=== PATIENT | female | born 1980 | race Two or more races ===

== ENCOUNTER 2018-08-20 10:50 | Emergency (ER) | payer SELFPAY ==
[~2018-08-20] VITALS: Ht 162.6 cm; Wt 108.9 kg
--- NOTE | 2018-08-20 11:20 | NUR ---
Dr Jenkins at the bedside for MSE.
[2018-08-20] MEDS ORDERED: IV NORMAL SALINE 1000 ML BAG IV ONE (11:30)
[2018-08-20] MEDS ORDERED: MORPHINE SULFATE 2 MG/1 ML DISP.SYRIN IV ONE (11:30)
[2018-08-20] MEDS ORDERED: ONDANSETRON 4 MG/2 ML VIAL IV ONE (11:30)
[2018-08-20 11:42] LABS: *BILIRUBIN,URIN NEGATIVE (NEGATIVE); *CLARITY,URINE CLEAR (CLEAR); *COLOR,URINE YELLOW (YELLOW); *KETONES,URINE TRACE (NEGATIVE); *UROBILINOGEN,URINE 0.2 E.U./dl (NORMAL); LEUKOCYTE ESTERASE ,URINE NEGATIVE (NEGATIVE); NITRITE, URINE NEGATIVE (NEGATIVE); PH,URINE 5.5 (5.0-8.0); UGLUCOSE NEGATIVE (NEGATIVE)
[2018-08-20 11:46] LABS: *BLOOD, URINE TRACE (NEGATIVE)
--- NOTE | 2018-08-20 11:50 | NUR ---
radiation technician attemptedx2 to draw pt's blood, but pt not cooperative and stating "you are not capable to doing this", and I won't allow you to use my foot. Dr Jenkins made aware.
[2018-08-20 11:51] LABS: BACTERIA,URINE NONE SEEN /HPF (NONE SEEN); MUCUS,URINE FEW /LPF (0-FEW); RBC,URINE 0-3 /HPF (0-3); SQUAMOUS EPITHELIAL CELL,UR MODERATE /HPF (NONE SEEN); WBC,URINE NONE SEEN /HPF (0-3)
[2018-08-20] MEDS ORDERED: MORPHINE SULFATE 4 MG/1 ML DISP.SYRIN ONE ×2 (11:57→15:38)
[2018-08-20] MEDS ORDERED: ONDANSETRON 4 MG/2 ML VIAL ONE (11:58)
[2018-08-20] MEDS ORDERED: MORPHINE SULFATE 4 MG/1 ML DISP.SYRIN IM ONE ×2 (12:00→15:30)
[2018-08-20] MEDS ORDERED: ONDANSETRON 4 MG/2 ML VIAL IM ONE (12:00)
[2018-08-20 12:17] LABS: *URINE HCG, QUAL NEGATIVE (NEGATIVE)
--- NOTE | 2018-08-20 13:08 | NUR ---
Pt back from ct, c/o abdominal pain, denies n/v. Dr bhatia made aware.
--- NOTE | 2018-08-20 13:36 | NUR ---
Pt resting in bed, speaking on the bed, NAD noted.
--- NOTE | 2018-08-20 14:08 | NUR ---
Call placed to [facility] , Ana Bo ([email or web address]) has been paged.
--- NOTE | 2018-08-20 14:32 | NUR ---
Placed call to [facility] for pt's transfer, spoke to Assistant [employer] [id number], no beds avail.
--- NOTE | 2018-08-20 14:35 | NUR ---
Pt allowed blood draw. MD bland.
[2018-08-20 14:44] LABS: BASOPHILS % (AUTO) 0.3 % (0.0-2.0); EOSINOPHILS # (AUTO) 0.2 K/uL (0.0-0.7); EOSINOPHILS % (AUTO) 2.3 % (0.0-7.0); HEMATOCRIT 43.4 % (31.2-41.9); HEMOGLOBIN 14.2 g/dL (10.9-14.3); LYMPHOCYTES % (AUTO) 24.9 % (20.5-51.5); MEAN CORPUSCULAR HEMOGLOBIN 27.8 uug (24.7-32.8); MEAN CORPUSCULAR HGB CONC 33 g/dL (32.3-35.6); MEAN CORPUSCULAR VOLUME 85.1 fL (75.5-95.3); MONOCYTES # (AUTO) 0.4 K/uL (2.0-10.0); MONOCYTES % (AUTO) 5.1 % (0.0-11.0); NEUTROPHILS # (AUTO) 5.3 K/uL (1.8-8.9); NEUTROPHILS % (AUTO) 67.4 % (38.5-71.5); PLATELET COUNT (AUTO) 357 K/uL (179-408); WHITE BLOOD COUNT (AUTO) 7.9 K/uL (3.8-11.8)
[2018-08-20 14:56] LABS: CREATININE 0.8 mg/dL (0.6-1.3); POTASSIUM 3.9 mmol/L (3.5-5.1)
[2018-08-20 15:01] LABS: BILIRUBIN,DIRECT 0.1 mg/dL (0.0-0.2); BILIRUBIN,TOTAL 0.5 mg/dL (0.2-1.0); TOTAL PROTEIN, SERUM 8.6 g/dL (6.4-8.2)
[2018-08-20] MEDS ORDERED: diphenhydrAMINE 50 MG/1 ML VIAL IM ONE (15:30)
[2018-08-20] MEDS ORDERED: diphenhydrAMINE 50 MG/1 ML VIAL ONE (15:38)
[2018-08-20] MEDS ORDERED: PROCHLORPERAZINE EDISYLATE 10 MG/2 ML VIAL IM ONE (17:30)
[2018-08-20] MEDS ORDERED: HYDROMORPHONE 1 MG/1 ML DISP.SYRIN IM ONE (17:30)
[2018-08-20] MEDS ORDERED: HYDROMORPHONE 1 MG/1 ML DISP.SYRIN ONE (17:31)
[2018-08-20] MEDS ORDERED: PROCHLORPERAZINE EDISYLATE 10 MG/2 ML VIAL ONE (17:31)
[2018-08-20 17:35] VITALS: BP 114/69
== END 2018-08-20 17:51 | disposition home or self-care (01) ==
LOC: ER 10:50
DX: K80.50 Calculus of bile duct without cholangitis or cholecystitis without obstruction (principal); Z90.49 Acquired absence of other specified parts of digestive tract; Z88.8 Allergy status to other drugs, medicaments and biological substances
CPT/HCPCS: 36415; 71045; 74176; 76705; 80048; 80076; 81001; 83690; 84484; 84703; 85025; 85730; 93005; 96372 ×6; 99284; J0780; J1170; J1200; J2270 ×2; J2405; 70030-TC; A4663; J7030